=== PATIENT | female | born 1970 | race African-American/Black ===

== ENCOUNTER 2020-04-29 04:47 | Day surgery (SDC) | payer BC ==
[2020-04-28 13:18] VITALS: BMI 38.0
[2020-04-29] MEDS ORDERED: MIDAZOLAM HCL 2 MG/2 ML SINGLE DOSE VIAL ONE (12:51)
[2020-04-29] MEDS ORDERED: PROPOFOL 20 ML ONE (12:51)
[2020-04-29] MEDS ORDERED: ROCURONIUM BROMIDE 50 MG/5 ML SYRINGE ONE (12:51)
[2020-04-29] MEDS ORDERED: SUCCINYLCHOLINE CHLORIDE 200 MG/10 ML SYRINGE ONE (13:00)
[2020-04-29] MEDS ORDERED: DEXAMETHASONE SOD PHOSPHATE 4 MG/1 ML VIAL ONE (13:02)
[2020-04-29] MEDS ORDERED: ceFAZolin SODIUM 1 GM VIAL ONE (13:10)
[2020-04-29] MEDS ORDERED: ceFAZolin 2 GRAM PREMIX BAG IVPB ONE (13:10)
[2020-04-29] MEDS ORDERED: BUPIVACAINE HCL/PF 0.5% (5 MG/ML) 30 ML VIAL IJ ONE ×2 (13:31)
[2020-04-29] MEDS ORDERED: oxyCODONE HCL 5 MG TABLET PO PRN (14:11)
[2020-04-29] MEDS ORDERED: ONDANSETRON 4 MG/2 ML VIAL IVPUSH PRN (14:11)
[2020-04-29] MEDS ORDERED: LACTATED RINGERS SOLUTION 1,000 ML IV SCH (14:15)
[2020-04-29] MEDS ORDERED: NEOSTIGMINE METHYLSULFATE 0.5 MG/ML - 10 ML MDV ONE (14:22)
[2020-04-29] MEDS ORDERED: GLYCOPYRROLATE 0.2 MG/1 ML VIAL ONE (14:22)
[2020-04-29] MEDS ORDERED: KETOROLAC TROMETHAMINE 30 MG/1 ML VIAL ONE (14:22)
[2020-04-29] MEDS ORDERED: LIDOCAINE HCL 2% 100 MG/5 ML DISP.SYRIN ONE (14:35)
[2020-04-29] MEDS ORDERED: MEPERIDINE HCL 25 MG/ML VIAL ONE (14:54)
--- NOTE | 2020-04-29 15:02 | OP ---
Operative Note - Note: Operative Date: 04/29/20 Pre-Operative Diagnosis: Chronic Cholecystits, Cholelithiasis Operation: Laprascopic cholecystectomy with intraop cholangiogram Findings: No cbd stones identified. distal tapering of cbd and empties into duodenum Post-Operative Diagnosis: Same as Pre-op Surgeon: Aldo Bender [employer] Supervisor: Layton Grimaldo Anesthesiologist/SOFTWARE SYSTEMS ARCHITECT: Celina Crowe Anesthesia: General Specimens Removed: Gallbladder Estimated Blood Loss (mls): 50 Fluid Volume Replaced (mls): 1,000 Operative Report Dictated: Yes
--- NOTE | 2020-04-29 15:03 | SURG ---
Surgery Electrical Timing Device Calibrator Note Electrical Timing Device Calibrator: Layton Grimaldo PA-C Date of Service: 04/29/20 Diagnosis: Chronic cholecystitis/cholelithiasis Procedure: Laprascopic cholecystectomy with intraoperative cholangiogram I was present for the entirety of the operative procedure. For further detail, please refer to operative report. Visit type - Case Type Case Type: Scheduled - New patient This patient is new to me today: Yes Date on this admission: 04/29/20
[2020-04-29 17:30] VITALS: BP 111/64; PULSE 88; TEMP 98.5
[2020-04-29] MEDS ORDERED: oxyCODONE HCL 5 MG TABLET PO ONE (17:30)
[2020-04-29] MEDS ORDERED: oxyCODONE HCL 5 MG TABLET ONE (17:31)
--- NOTE | 2020-04-30 09:49 | OP ---
DATE OF OPERATION: 04/29/2020 SURGICAL ATTENDING: Thad Murphy MD [employer] LICENSEE: MOISES Pérez PREOPERATIVE DIAGNOSIS: Cholelithiasis. POSTOPERATIVE DIAGNOSIS: Cholelithiasis. ANESTHESIA: General endotracheal. PROCEDURE: 1. Laparoscopic cholecystectomy with cholangiogram. 2. Umbilical hernia repair. DESCRIPTION OF PROCEDURE: The patient was taken into the operating room, placed in supine position, endotracheally intubated, prepped and draped in the usual sterile fashion. A horizontal incision was made just above the umbilicus and carried down through subcutaneous tissues. An umbilical hernia was identified, dissected free from surrounding tissues, and the omental fat was reduced into the abdomen. A peritoneal opening was made. A Dwayne catheter was then placed and secured to the area with Vicryl sutures and Xeroform. The abdomen was then insufflated and a camera was placed, showing good placement and no intraabdominal injury. A midepigastric and 2 right lateral 5-mm ports were then placed under direct vision. The gallbladder was identified, grasped, and retracted superiorly, anteriorly, and laterally. The cystic duct was identified, dissected free from surrounding tissues. Two lymphatics were identified, clipped, and cut. The cystic artery was also identified. Thus a critical view was attained with the cystic duct and cystic artery visualized at once. A clip was placed on the distal end of the cystic duct near the gallbladder. A ductotomy was then made below the clip, and a cholangiocatheter was then placed and the balloon inflated. A cholangiogram was then performed showing good common duct and duodenal filling with no defects. The cholangiocatheter was removed. Two clips were then placed below the ductotomy and the duct transected. Three clips were placed on the cystic artery, and the artery transected above 2 clips. The gallbladder was then dissected off of the liver with electrocautery. At one point a small amount of clean bile was spilled, but no stones. The gallbladder was then placed into an EndoCatch bag, removed through the umbilical port and sent to pathology. Innumerable stones were palpated within the gallbladder. Hemostasis was achieved with electrocautery. The right upper quadrant was irrigated and suctioned and seen to be clean and hemostatic. The three 5-mm ports were then removed. The supraumbilical port was removed and the umbilical incision was closed with interrupted 0 Vicryl sutures, subcutaneous Vicryl stitches, and Monocryl for the skin. Sterile dressings were placed. The patient was then awakened, extubated, and taken to recovery in stable condition. Dr. Murphy, the attending surgeon, was present throughout the entire procedure. THAD MURPHY M.D. [id number]
--- NOTE | 2020-05-03 15:32 | PATH ---
Surgical Pathology Report Patient Name: SELINA GAVIN [facility]. Rec. #: [id number] /Age/Gender: 1970 (Age: 50) / F Account: [id number] Location: [facility] SURGICAL Taken: 04/29/2020 Received: 05/02/2020 Reported: 05/03/2020 Physicians: Aldo Bender M.D. Specimen(s) Received GALLBLADDER Clinical History Calculus of gallbladder Final Diagnosis GALLBLADDER, CHOLECYSTECTOMY: CHRONIC CHOLECYSTITIS AND CHOLELITHIASIS. Electronically Signed Maira Miranda M.D. Gross Description Received in formalin, labeled "gallbladder," is a 10.5 x 2.1 x 2.1 cm gallbladder with a 0.2 cm. in length portion of cystic duct attached. The outer surface varies from smooth to shaggy. The lumen contains with bile and numerous stones, the largest measures 0.5 cm in greatest dimension. The mucosa is focally superficial eroded. The wall of the gallbladder measures 0.2cm in thickness. Mechanical Maintenance Technician sections are submitted in one cassette. KWRene/05/02/2020 marleny/05/02/2020
== END 2020-04-29 19:50 | disposition home or self-care (01) ==
LOC: JASU-SURG 04:47
PROVIDERS: ATTEND Surgery
PROC: BF13YZZ Fluoroscopy of Gallbladder and Bile Ducts using Other Contrast (ICD-10-PCS; 2020-04-29)
PROC: 0FT44ZZ Resection of Gallbladder, Percutaneous Endoscopic Approach (ICD-10-PCS; principal; 2020-04-29 11:30)
DX: K80.20 Calculus of gallbladder without cholecystitis without obstruction (principal); K42.9 Umbilical hernia without obstruction or gangrene
CPT/HCPCS: 76000-TC-FY; 84703; 88304-TC; 94760